=== PATIENT | female | born 1975 | race Caucasian/White ===

== ENCOUNTER → 2018-07-26 | Outpatient (CLI) | payer OTHER ==
[~2018-07-26] MED LIST: ALBU8.5H5
== END | disposition home or self-care (01) ==
LOC: CFH 11:40
PROVIDERS: ATTEND Obstetrics & Gynecology
DX: Z12.31 Encounter for screening mammogram for malignant neoplasm of breast (principal); R05 Cough; J45.40 Moderate persistent asthma, uncomplicated
CPT/HCPCS: 71046; 77067

== ENCOUNTER → 2018-08-16 | Outpatient (CLI) | payer OTHER | END | disposition home or self-care (01) | LOC: CFH 12:43 | PROVIDERS: ATTEND Obstetrics & Gynecology | DX: R92.1 Mammographic calcification found on diagnostic imaging of breast (principal) | CPT/HCPCS: 77065 ==

== ENCOUNTER → 2018-09-04 | Outpatient (CLI) | payer OTHER ==
[~2018-09-04] MED LIST changes: +LIDOCAINE 1%, 20ML ONE; +LIDOCAINE 1%-EPI 1:100K, 20ML ONE; +SODIUM BICARBONATE 4.0%, 5ML ONE
== END | disposition home or self-care (01) ==
LOC: CFH 07:32
PROVIDERS: ATTEND Obstetrics & Gynecology
DX: N60.21 Fibroadenosis of right breast (principal)
CPT/HCPCS: 19081; 77065; 88305; J3490

== ENCOUNTER 2019-06-04 11:47 | Inpatient (IN) | payer OTHER ==
[~2019-06-04] VITALS: Ht 170.2 cm; Wt 87.0 kg
[2019-06-06 08:00] VITALS: BP 138/87
== END 2019-06-06 13:30 | disposition home or self-care (01) | DRG 807 ==
LOC: LDIP 11:47 → 2NW 22:35
PROVIDERS: ADMIT Obstetrics & Gynecology; ATTEND Obstetrics & Gynecology
PROC: 10E0XZZ Delivery of Products of Conception, External Approach (ICD-10-PCS; principal; 2019-06-04)
PROC: 0KQM0ZZ Repair Perineum Muscle, Open Approach (ICD-10-PCS; 2019-06-04)
PROC: 0UQMXZZ Repair Vulva, External Approach (ICD-10-PCS; 2019-06-04)
PROC: 3E0R3BZ Introduction of Anesthetic Agent into Spinal Canal, Percutaneous Approach (ICD-10-PCS; 2019-06-04)
PROC: 00HU33Z Insertion of Infusion Device into Spinal Canal, Percutaneous Approach (ICD-10-PCS; 2019-06-04)
DX: O99.824 Streptococcus B carrier state complicating childbirth (principal); Z37.0 Single live birth; O99.52 Diseases of the respiratory system complicating childbirth; O10.92 Unspecified pre-existing hypertension complicating childbirth; O70.1 Second degree perineal laceration during delivery; O71.82 Other specified trauma to perineum and vulva; Z3A.38 38 weeks gestation of pregnancy
CPT/HCPCS: 36415; 85025; 86850; 86900; G0378; J0690; J3010; J2590; J7120

== ENCOUNTER 2019-06-19 14:21 | Emergency (ER) | payer OTHER ==
[~2019-06-19] VITALS: Ht 170.2 cm; Wt 82.0 kg
[~2019-06-19 14:21] MED LIST changes: +IBUP-1222 PO; -LIDOCAINE 1%, 20ML ONE; -LIDOCAINE 1%-EPI 1:100K, 20ML ONE; +OXYC-302 PO; +SENN-52 PO; -SODIUM BICARBONATE 4.0%, 5ML ONE
--- NOTE | 2019-06-19 15:18 | NUR ---
PT RESTING IN BED AT THIS TIME. PT ON CONTINUOUS PULSE OX AND W/O DISTRESS. C/O INCREASED URINATION THE PAST FEW DAYS, CONTINUED FOOT SWELLING POST , AND 04/30 HEADACHE. SEEN BY OB YESTERDAY AND STARTED ON NIFEDIPINE 30MG BUT HEADACHE WORSENED TODAY DESPITE DECREASE IN BP FROM 170S TO 140S. Addendum: 06/19/19 at 1523 by LUCIANO PT HAS HX OF PRE-ECLAMPSIA IN ALL HER OTHER 6 PREGNANCIES, BUT NONE IN THIS . STATES SHE HAS BEEN SELF-MEDICATING HEADACHE FOR 10 DAYS WITH IBUPROFEN.
[2019-06-19] MEDS ORDERED: NIFE30TA15 PO (15:23)
[2019-06-19] MEDS ORDERED: PROCHLORPERAZINE 5 MG/ML, 2ML ONE (15:49)
[2019-06-19] MEDS ORDERED: DIPHENHYDRAMINE 50 MG/ML, 1ML ONE (15:49)
[2019-06-19] MEDS ORDERED: SODIUM CHLORIDE 0.9% 1,000ML IVBOLUS ONE (16:00)
[2019-06-19] MEDS ORDERED: PROCHLORPERAZINE 5 MG/ML, 2ML IVPush ONE (16:00)
[2019-06-19] MEDS ORDERED: DIPHENHYDRAMINE 50 MG/ML, 1ML IVPush ONE (16:00)
[2019-06-19 16:02] LABS: BASOPHILS # (AUTO) 0.02 x10^3/uL (0-0.1); BASOPHILS % (AUTO) 0 % (0-1); EOSINOPHILS % (AUTO) 2 % (1-7); LYMPHOCYTES # (AUTO) 0.93 x10^3/uL (1-3.4); LYMPHOCYTES % (AUTO) 14 % (22-44); MD NO; MEAN CORPUSCULAR HEMOGLOBIN 29.3 pg (27.0-34.8); MEAN CORPUSCULAR HGB CONC 32.6 g/dL (32.4-35.8); MEAN CORPUSCULAR VOLUME 90.1 fL (80-100); MEAN PLATELET VOLUME 7.3 fL (7.4-10.4); MONOCYTES # (AUTO) 0.22 x10^3/uL (0.2-0.8); MONOCYTES % (AUTO) 3 % (2-9); NEUTROPHILS # (AUTO) 5.36 x10^3/uL (1.8-6.8); NEUTROPHILS % (AUTO) 81 % (42-75); PLATELET COUNT 305 x10^3/uL (130-400); RED BLOOD COUNT 4.15 x10^6/uL (3.82-5.3); RED CELL DISTRIBUTION WIDTH 15.3 % (9.6-15.2)
--- NOTE | 2019-06-19 16:02 | NUR ---
1000ML OF NORMAL SALINE STARTED VIA LAC PIV ALONG WITH BENADRYL 25MG IVP AND COMPAZINE 10MG IVP PER ERMD ORDER. VERIFIED MEDICATION RIGHTS W/ PATIENT TO ENSURE SAFETY. PT RESTING IN BED W/ CALL LIGHT IN REACH AT THIS TIME. REVIEWED MEDICATION SIDE EFFECTS W/ PT AND SPOUSE, NO QUESTIONS OR CONCERNS. FLUIDS RUNNING SLOW D/T PT CONCERN OF PEDAL EDEMA INCREASE.
[2019-06-19 16:03] LABS: ALBUMIN 3.5 g/dL (3.4-5.0); ANION GAP 11 mmol/L (5-15); CALCIUM 8.4 mg/dL (8.5-10.1); CHLORIDE 109 mmol/L (98-107)
[2019-06-19 16:04] LABS: CREATININE 0.78 mg/dL (0.55-1.02)
[2019-06-19 16:23] LABS: MICROSCOPIC AUTO
[2019-06-19 16:27] LABS: CULTURE INDICATED? YES
--- NOTE | 2019-06-19 16:59 | NUR ---
PT REPORTS CONTINUED HEADACHE, BUT SLIGHTLY IMPROVED. DENIES INCREASED SWELLING TO FEET W/ INFUSION. PT IS AWAKE/ALERT AND AMBULATORY TO THE RESTROOM W/O DISTRESS AT THIS TIME.
--- NOTE | 2019-06-19 17:18 | NUR ---
DR OTERO AT BEDSIDE ASSESSING PT.
[2019-06-19] MEDS ORDERED: KETOROLAC 30 MG/1 ML IVPush ONE (17:30)
[2019-06-19 17:36] LABS: ALANINE AMINOTRANSFERASE 57 U/L (12-78); ALBUMIN 3.6 g/dL (3.4-5.0)
[2019-06-19 17:39] LABS: ALKALINE PHOSPHATASE 89 U/L (45-117); BILIRUBIN,TOTAL 0.5 mg/dL (0.2-1.0); TOTAL PROTEIN 7.4 g/dL (6.4-8.2)
[2019-06-19 17:41] LABS: BILIRUBIN, DIRECT < 0.1 mg/dL (0.1-0.2); BILIRUBIN,INDIRECT 0.4 mg/dL (0.0-2.0)
[2019-06-19] MEDS ORDERED: KETOROLAC 30 MG/1 ML ONE (17:44)
--- NOTE | 2019-06-19 17:48 | NUR ---
VERIFIED ACCEPTABILITY OF TORADOL FOR PT W/ ERMD AND ADVISED OK TO ADMINISTER.
[2019-06-19 19:04] VITALS: BP 139/85
== END 2019-06-19 19:06 | disposition home or self-care (01) ==
LOC: ED 19:00
DX: I10 Essential (primary) hypertension (principal); R51 Headache; J45.909 Unspecified asthma, uncomplicated; Z90.49 Acquired absence of other specified parts of digestive tract; Z87.01 Personal history of pneumonia (recurrent)
CPT/HCPCS: 36415; 80048; 80076; 81001; 82040; 84550; 85025; 87086; 96374; 96375; 99283; J0780; J1200; J1885; J7030

== ENCOUNTER → 2020-08-11 | Outpatient (CLI) | payer OTHER ==
[~2020-08-11] MED LIST changes: +NIFE-7 PO
[2020-08-11 08:13] LABS: ALANINE AMINOTRANSFERASE 13 U/L (12-78); ALBUMIN 3.6 g/dL (3.4-5.0); ANION GAP 5 mmol/L (5-15); CALCIUM 8.5 mg/dL (8.5-10.1); CHLORIDE 108 mmol/L (98-107); CREATININE 0.77 mg/dL (0.55-1.02)
[2020-08-11 08:15] LABS: ALKALINE PHOSPHATASE 74 U/L (45-117); BILIRUBIN,TOTAL 0.5 mg/dL (0.2-1.0); TOTAL PROTEIN 7.1 g/dL (6.4-8.2)
[2020-08-11 08:20] LABS: CREATININE,URINE RANDOM 99.2 mg/dL
== END | disposition home or self-care (01) ==
LOC: LAB 07:43
PROVIDERS: ATTEND Internal Medicine Endocrinology, Diabetes & Metabolism
DX: R53.83 Other fatigue (principal); E03.9 Hypothyroidism, unspecified; E88.9 Metabolic disorder, unspecified
CPT/HCPCS: 36415; 80053; 82310; 82570; 84100; 84105; 84133; 84300